=== PATIENT | female | born 1970 | race Caucasian/White ===

== ENCOUNTER 2018-06-11 21:52 | Emergency (ER) | payer BC, MEDICAID ==
--- NOTE | 2018-06-11 23:41 | ER Document Report ---
ED General - General Chief Complaint: Chest Pain Stated Complaint: CHEST PAIN Time Seen by Provider: 06/11/18 23:41 Notes: Patient is a 47-year-old female who presents with complaint of some numbness and tingling to left arm. Says this been ongoing for a week. 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 She is followed by a chiropractor. She says that all weeks she assumed is related to this. Today she became concerned she developed some squeezing type sensation in her chest. She said she felt as if her heart would normally squeeze. These symptoms lasted briefly but are intermittent. She currently is not having symptoms. She therefore came to ER to make sure that she was not having a heart attack. She denies shortness of breath. No diaphoresis. No fevers. No history of FL. She says her mother has some heart disease but does not have any stents is not had an FL. She is not exactly sure what type of heart disease her mom has. Patient herself is not diabetic, she does not have hypertension, she does not have any cardiac risk factors except for smoking. Patient says that she suspects that most likely her symptoms are related to stress. She says she does have history of stress and anxiety and does take Xanax and Celexa. She says she is been under a lot of stress recently because she is had some stress at home as well as been working 13 hours a day at work. No other complaints at this time. - Related Data Allergies/Adverse Reactions: oxycodone HCl [From Percocet] Allergy (Verified 08/29/10 10:32) acetaminophen [From Percocet] Adverse Reaction (Mild, Verified 08/29/10 10:47) n and v Past Medical History - Social History Smoking Status: Current Every Day Smoker Frequency of alcohol use: None Drug Abuse: None Family History: Other - heart disease - Past Medical History Cardiac Medical History: Denies: Hx Coronary Artery Disease, Hx Heart Attack, Hx Hypertension Pulmonary Medical History: Denies: Hx Asthma, Hx Bronchitis, Hx COPD, Hx Pneumonia Neurological Medical History: Denies: Hx Cerebrovascular Accident GI Medical History: Musculoskeletal Medical History: Reports Hx Arthritis - neck Infectious Medical History: Past Surgical History: Denies: Hx Pacemaker Review of Systems - Review of Systems Notes: My Normal Review Basic REVIEW OF SYSTEMS: CONSTITUTIONAL : Denies fever, chills, or sweats. Denies recent illness. EENT: Denies eye, ear, throat, or mouth pain or symptoms. Denies nasal or sinus congestion. CARDIOVASCULAR: Intermittent quick chest tightness. RESPIRATORY: Denies cough, cold, or chest congestion. Denies shortness of breath, difficulty breathing, or wheezing. GASTROINTESTINAL: Denies abdominal pain. Denies nausea, vomiting, or diarrhea. MUSCULOSKELETAL: Denies neck or back pain or joint pain or swelling. SKIN: Denies rash or skin lesions. NEUROLOGICAL: Denies altered mental status or loss of consciousness. Denies he adache. Denies weakness or paralysis or loss of use of either side. Denies problems with gait or speech. Denies sensory or motor loss. PSYCHIATRIC: Anxiety ALL OTHER SYSTEMS REVIEWED AND NEGATIVE. Physical Exam - Vital signs Vitals: Temp Pulse Resp BP Pulse Ox 98.2 F 61 15 108/61 97 06/11/18 22:51 06/11/18 22:51 06/11/18 22:51 06/11/18 22:51 06/11/18 22:51 - Notes Notes: General Appearance: Well nourished, alert, cooperative, no acute distress, no obvious discomfort. Well-appearing. Vitals: reviewed, See vital signs table. Head: no swelling or tenderness to the head Eyes: PERRL, EOMI, Conjuctiva clear Mouth: No decreasd moisture Lungs: No wheezing, No rales, No rhonci, No accessory muscle use, good air exchange bilaterally. Heart: Normal rate, Regular rythm, No murmur, no rub Neck: No reproducible pain to palpation of cervical spine. Abdomen: Normal BS, soft, No rigidity, No abdominal tenderness, No guarding, no rebound, no abdominal masses, no organomegaly Extremities: strength 5/5 in all extremities, good pulses in all extremities, no swelling or tenderness in the extremities, no edema. Is good strength and good distal sensation in left hand and arm. Normal peripheral pulses. Skin: warm, dry, appropriate color, no rash Neuro: speech clear, oriented x 3, normal affect, responds appropriately to questions. Course - Re-evaluation Re-evalutation: 06/12/18 02:45 On reevaluation patient continues look well. She is not having any further tightness in the chest. Suspect the numbness into her left hand is related to the known cervical disc issues that she has. She only has a risk factor of smoking. She has a heart score of 2. I talked her at length about what a heart score of 2 means. I recommend outpatient follow-up and she is agreeable to this. We will give her the number to on-call cardiology. I encouraged her return to ER immediately if she has recurrent chest pain, difficulty breathing, or feels unwell. Patient agrees with plan will be discharged home. Dictation of this chart was performed using voice recognition software; therefore, there may be some unintended grammatical errors. - Vital Signs Vital signs: Temp Pulse Resp BP Pulse Ox 98.2 F 61 15 108/61 97 06/11/18 22:51 06/11/18 22:51 06/11/18 22:51 06/11/18 22:51 06/11/18 22:51 - Laboratory Result Diagrams: 06/11/18 23:58 06/11/18 23:58 Laboratory results interpreted by me: 06/11/18 06/11/18 23:58 23:58 RBC 3.55 L Hct 35.7 L MCV 101 H MCH 34.9 H Seg Neutrophils % 37.7 L Lymphocytes % 52.6 H Sodium 134.9 L Creatinine 0.50 L Total Protein 6.2 L - EKG Interpretation by Me Additional EKG results interpreted by me: 06/11/18 23:41 EKG is reviewed and interpreted by me. EKG shows sinus rhythm with a rate of [address] segment elevation or depression. No ischemic T wave inversions. NC interval, QRS duration, QT intervals are within normal range. No old EKG available for comparison. Discharge - Discharge Clinical Impression: Chest pain Qualifiers: Chest pain type: unspecified Qualified Code(s): R07.9 - Chest pain, unspecified Condition: Good Disposition: HOME, SELF-CARE Additional Instructions: Your workup is negative for any evidence of heart attack. Based on your risk factors and a negative workup I feel it is safe for you to go home. We will hav e you follow-up with a paper machine supervisor outpatient only. Please call their office this morning to make a follow-up appointment. Please return to the ER immediately if you have current worsening chest pain, difficulty breathing, or feel unwell. Forms: Return to Work Referrals: JORGE DAS MD [ACTIVE STAFF] - Follow up in 3-5 days
[2018-06-12 00:06] LABS: ABSOLUTE MONOCYTES (AUTO) 0.5 10^3/uL (0.1-1.4); ABSOLUTE NEUT (AUTO) 2.2 10^3/uL (1.7-8.2); BASOPHILS % (AUTO) 0.5 % (0-2); EOSINOPHILS % (AUTO) 0.6 % (0-6); HEMATOCRIT 35.7 % (36.0-47.0); HEMOGLOBIN 12.4 g/dL (12.0-15.5); LYMPHOCYTES % (AUTO) 52.6 % (13-45); MEAN CORPUSCULAR HEMOGLOBIN 34.9 pg (27.0-33.4); MEAN CORPUSCULAR HGB CONC 34.7 g/dL (32.0-36.0); MEAN CORPUSCULAR VOLUME 101 fl (80-97); MONOCYTES % (AUTO) 8.6 % (3-13); PLATELET COUNT 237 10^3/uL (150-450); RED BLOOD COUNT 3.55 10^6/uL (3.72-5.28); RED CELL DISTRIBUTION WIDTH 12.9 % (11.5-14.0); SEGMENTED NEUTROPHILS % (AUTO) 37.7 % (42-78); TOTAL CELLS COUNTED % (AUTO) 100 %; WHITE BLOOD COUNT 5.8 10^3/uL (4.0-10.5)
[2018-06-12 00:23] LABS: ALANINE AMINOTRANSFERASE 24 U/L (9-52); ALBUMIN 3.9 g/dL (3.5-5.0); ALKALINE PHOSPHATASE 51 U/L (38-126); ASPARTATE AMINO TRANSFERASE 15 U/L (14-36); BILIRUBIN,DIRECT 0.1 mg/dL (0.0-0.4); BILIRUBIN,TOTAL 0.6 mg/dL (0.2-1.3); BLOOD UREA NITROGEN 12 mg/dL (7-20); CALCIUM 8.9 mg/dL (8.4-10.2); GLUCOSE 95 mg/dL (75-110); TOTAL PROTEIN 6.2 g/dL (6.3-8.2)
[2018-06-12 00:28] LABS: ANION GAP 6 (5-19); CARBON DIOXIDE 28 mmol/L (22-30); CHLORIDE 101 mmol/L (98-107); SODIUM 134.9 mmol/L (137-145)
--- NOTE | 2018-06-12 00:28 | RADIOLOGY REPORT (SQ) ---
EXAM DESCRIPTION: XR CHEST 1 VIEW COMPLETED DATE/TME: 06/11/2018 23:52 CLINICAL HISTORY: 47 years, Female, chest pain COMPARISON: 12-11 chest x-ray NUMBER OF VIEWS: 1 TECHNIQUE: Portable chest LIMITATIONS: None. FINDINGS: The heart size is normal. Lungs are clear. No pneumothorax IMPRESSION: Negative chest copyright 2010 [employer]- All Rights Reserved
[2018-06-12 00:31] LABS: POTASSIUM 3.7 mmol/L (3.6-5.0)
[2018-06-12 02:53] VITALS: BP 105/68
--- NOTE | 2018-06-13 12:51 | EKG REPORT ---
SEVERITY:- NORMAL ECG - SINUS RHYTHM : Confirmed by: Judd Xiong MD 13-Jun-2018 12:50:42
== END 2018-06-12 02:53 | disposition home or self-care (01) ==
LOC: ER 21:52
DX: R07.9 Chest pain, unspecified (principal); R20.0 Anesthesia of skin; F17.200 Nicotine dependence, unspecified, uncomplicated; Z79.899 Other long term (current) drug therapy
CPT/HCPCS: 36415; 71045; 80053; 84484; 85025; 93005; 93010; 99285